=== PATIENT | female | born 1995 | race Caucasian/White ===

== ENCOUNTER 2016-11-16 20:54 | Emergency (ER) | payer OTHER ==
[2016-11-16 21:17] VITALS: BP 126/81; PULSE 105; RESP 20; TEMP 99.5; O2SAT 95
[2016-11-16 21:32] LABS: LEUKOCYTE ESTERASE,URINE 3+ (NEGATIVE); NITRITE,URINE NEGATIVE (NEGATIVE)
[2016-11-16 21:33] LABS: COLOR DARK YELLOW
[2016-11-16 21:42] LABS: BACTERIA 2+ /hpf (NONE SEEN); MUCUS 2+ /lpf (NONE-1+); WBC,URINE >182 /hpf (0-3)
[2016-11-16] MEDS ORDERED: CEPHALEXIN 500 MG CAP PO ONE (21:44)
--- NOTE | 2016-11-16 22:01 | UCPHY ---
H & P Time Seen by Provider: 11/16/16 21:09 Patient Type: New HPI/ROS: This patient complains of UTI symptoms. She reports a week of dysuria and mild frequency. She tried to treat this homeopathic early without success and presented tonight because she developed associated right flank pain over the past 3 days. Today the flank pain has diminished and were at the moment she reports no flank pain. But she is worried about potential kidney infection after she called her primary care physician discussed this possibility encouraging patient came in for evaluation. She did have some low-grade fevers over the past 24 hours and some chills last night. No chills today. ROS: Constitutional: No significant fatigue or other complaints HEENT: No complaints pulmonary: No complaints cardiovascular: No lightheadedness GI: No nausea vomiting : No vaginal discharge. Last menstrual period: Irregular due to IUD. 7 point ROS is otherwise negative Past Medical/Surgical History: 1 previous UTI. Social History: She is a student at [employer]. She is accompanied by her roommate marietta Smoking Status: Never smoked Physical Exam: General Appearance: Alert, no distress. Eyes: Pupils equal and round no pallor or injection. ENT, Mouth: Mucous membranes moist. Respiratory: There are no retractions, lungs are clear to auscultation. Cardiovascular: Mild tachycardia. No murmur gallop or rub Gastrointestinal: Abdomen is soft and nontender, no masses, bowel sounds normal. Back: Minimal right CVA tenderness no left CVA tenderness or other abnormal findings Neurological: Alert. Skin: Warm and dry, no rashes. Psychiatric: Mood and affect are normal DIFFERENTIAL DIAGNOSIS: After history and physical exam differential diagnosis was considered for cystitis, pyelonephritis, back strain, viral illness, Constitutional: Initial Vital Signs Temperature (C) 37.5 C 11/16/16 21:15 Heart Rate 105 H 11/16/16 21:15 Respiratory Rate 20 11/16/16 21:15 Blood Pressure 126/81 H 11/16/16 21:15 O2 Sat (%) 95 11/16/16 21:15 O2 Delivery Mode Room Air Allergies/Adverse Reactions: No Known Allergies Allergy (Unverified 11/16/16 21:14) Home Medications: Medication Instructions Recorded Cephalexin [Keflex (*)] 500 mg PO TID #21 cap 11/16/16 MDM/Departure - MDM Diagnostics: test is negative. Urinalysis is consistent with UTI. Medications Given: Discontinued Medications Cephalexin HCl (Keflex) 500 mg PO EDNOW ONE PRN Reason: Protocol Stop: 11/16/16 21:45 Last Admin: 11/16/16 22:08 Dose: 500 mg ED Course/Re-evaluation: Clinically I suspect the patient may have very mild pyelonephritis. I did discuss the option of IV fluids, IV antibiotics. Patient declines an IV at this time. She appears clinically well without findings for sepsis. She is tolerating good p.o. intake and is reasonable to treat her with oral antibiotics. She is given a 1st dose of Keflex. - Depart Disposition: Home, Routine, Self-Care Clinical Impression: Urinary tract infection Qualifiers: Urinary tract infection type: site unspecified Hematuria presence: without hematuria Qualified Code(s): N39.0 - Urinary tract infection, site not specified Condition: Good Instructions: Urinary Tract Infection in Women (ED) Additional Instructions: Diagnosis: Urinary tract infection Plan: Drink plenty fluids Keflex antibiotic Ibuprofen for pain fevers as needed Return for any significant worsening despite the treatment plan Prescriptions: Cephalexin [Keflex (*)] 500 mg PO TID #21 cap Referrals: NONE *PRIMARY CARE P,. [Primary Care Provider] - As per Instructions - PQRS PQRS Measurement: NA
== END 2016-11-16 22:09 | disposition home or self-care (01) ==
LOC: CED 20:54
DX: N39.0 Urinary tract infection, site not specified (principal)
CPT/HCPCS: 81003-PO; 81015-PO; 81025-PO; 99203-PO; G0463-PO